=== PATIENT | male | born 1945 | race Hispanic/Latino ===

== ENCOUNTER 2021-08-26 16:35 | Inpatient (IN) | payer OTHER, MEDICARE ==
[~2021-08-26] VITALS: Ht 167.6 cm; Wt 62.1 kg
[~2021-08-26 16:35] MED LIST: BENA20TA77 PO; CHOL500045 PO; CITA10SO PO; FINA5TAB41 PO; FOLI1TAB15 PO; LORA-699 PO; SODI100037 PO; Thiamine Hcl PO
[2021-08-26] MEDS ORDERED: ACETAMINOPHEN 500 MG TABLET PO ONE (17:00)
[2021-08-26 17:25] LABS: BASOPHILS % (AUTO) 0.1 % (0.0-5.0); MEAN CORPUSCULAR HEMOGLOBIN 31.6 pg (27.0-33.0); MEAN CORPUSCULAR HGB CONC 35.4 g/dL (32.0-36.0); MEAN CORPUSCULAR VOLUME 89.1 fL (79-99); MONOCYTES % (AUTO) 10.9 % (3.0-13.0); NEUTROPHILS % (AUTO) 79.6 % (40.0-77.0); PLATELET COUNT (AUTO) 209 K/uL (130-400); RED BLOOD CELL COUNT(AUTO) 3.93 MIL/uL (4.50-6.20); RED CELL DISTRIBUTION WIDTH 13.1 % (11.0-15.5); WHITE BLOOD COUNT (AUTO) 15.9 K/uL (4.8-10.8)
[2021-08-26 17:36] LABS: CARBON DIOXIDE 21 mmol/L (21-32); CHLORIDE 92 mmol/L (101-111); CREATININE 1.3 mg/dL (0.5-1.5); GLOMERULAR FILTR. RATE CALC 57 mL/min (>60); GLUCOSE,RANDOM 142 mg/dL (70-105); POTASSIUM 3.7 mmol/L (3.5-5.1); SODIUM SERUM 127 mmol/L (136-145); UREA NITROGEN, BLOOD 16 mg/dL (7-18)
[2021-08-26 17:37] LABS: INR 1.13 (0.85-1.15); PROTHROMBIN TIME 12.2 SEC (9.6-11.6)
[2021-08-26 17:40] LABS: ALANINE AMINOTRANSFERASE 15 U/L (12-78); ALBUMIN 3.5 g/dL (3.5-5.0); ALCOHOL, BLOOD < 3 mg/dL (0-10); ASPARTATE AMINOTRANSFERASE 26 U/L (10-37); BILIRUBIN,TOTAL 1.7 mg/dL (0.2-1.0); TOTAL PROTEIN, SERUM 7.9 g/dL (6.0-8.3)
[2021-08-26] MEDS ORDERED: 0.9%NACL 1000ML 1,000 ML IV ONE (17:59)
[2021-08-26 18:19] LABS: APPEARANCE,URINE Cloudy (CLEAR); BILIRUBIN,URINE Small (NEGATIVE); COLOR,URINE Orange (YELLOW); GLUCOSE, URINE (UA) Negative (NEGATIVE); KETONES,URINE Trace mg/dL (NEGATIVE); LEUKOCYTE ESTERASE ,URINE Large (NEGATIVE); NITRATE,URINE Negative (NEGATIVE); OCCULT BLOOD,URINE Trace (NEGATIVE); PH,URINE 5.5 (5.0-8.0); PROTEIN,URINE Trace mg/dL (NEGATIVE)
[2021-08-26 18:56] LABS: BACTERIA,URINE Moderate /HPF (None Seen); RBC,URINE None Seen /HPF (0-1); SQUAMOUS EPITHELIAL CELL,UR None Seen /HPF (0-2); WBC,URINE 26-50 /HPF (0-1)
[2021-08-26] MEDS ORDERED: ACETAMINOPHEN WITH CODEINE 1 TAB TAB PO PRN (19:00)
[2021-08-26] MEDS ORDERED: ONDANSETRON 4MG INJ IV PRN (19:00)
[2021-08-26] MEDS ORDERED: MULTIVITAMIN TABLET PO SCH (19:00)
[2021-08-26] MEDS ORDERED: MORPHINE 4 MG SYG IV PRN (19:00)
[2021-08-26] MEDS ORDERED: ACETAMINOPHEN 325 MG TAB PO PRN (19:00)
[2021-08-26] MEDS ORDERED: CEFTRIAXONE 1G VIAL IVP ONE (19:30)
[2021-08-26] MEDS: 0.9%NACL 1000ML 1,000 ML IV SCH (19:52)
[2021-08-26] MEDS: FAMOTIDINE 20MG TAB PO SCH (19:56)
[2021-08-26] MEDS ORDERED: FOLIC ACID 1 MG TABLET PO ONE (19:59)
[2021-08-26] MEDS ORDERED: THIAMINE HCL 100 MG TABLET PO ONE (19:59)
[2021-08-26] MEDS ORDERED: AMLO-257 PO (20:21)
[2021-08-26] MEDS ORDERED: ROSU5TAB12 PO (20:21)
[2021-08-26] MEDS ORDERED: METO-408 PO (20:21)
[2021-08-26] MEDS ORDERED: TAMS-1 PO (20:21)
[2021-08-26] MEDS ORDERED: ERGO500093 PO (20:21)
[2021-08-27] MEDS ORDERED: LORAZEPAM 2 MG/ML 1 ML VIAL IVP PRN
[2021-08-27] MEDS ORDERED: PHARMACY COMMUNICATION MISC PRN
[2021-08-27 00:15] VITALS: BP 102/70
[2021-08-27 04:35] VITALS: BP 108/69
[2021-08-27 05:07] LABS: MEAN CORPUSCULAR HEMOGLOBIN 32.1 pg (27.0-33.0); MEAN CORPUSCULAR HGB CONC 35.9 g/dL (32.0-36.0); MEAN CORPUSCULAR VOLUME 89.5 fL (79-99); RED BLOOD CELL COUNT(AUTO) 3.24 MIL/uL (4.50-6.20); RED CELL DISTRIBUTION WIDTH 13.1 % (11.0-15.5); WHITE BLOOD COUNT (AUTO) 12.9 K/uL (4.8-10.8)
[2021-08-27 05:36] LABS: ALBUMIN 2.7 g/dL (3.5-5.0); BILIRUBIN,TOTAL 0.9 mg/dL (0.2-1.0); CREATININE 0.9 mg/dL (0.5-1.5); POTASSIUM 3.5 mmol/L (3.5-5.1); TOTAL PROTEIN, SERUM 6.3 g/dL (6.0-8.3)
[2021-08-27 07:25] LABS: CHLORIDE,URINE RANDOM 39 mmol/L (110-250); CREATININE,URINE RANDOM 158 mg/dL (30-135); POTASSIUM,URINE RANDOM 45 mmol/L (25-125); SODIUM,URINE RANDOM 17 mmol/l (40-220)
[2021-08-27 07:30] VITALS: BP 147/92
[2021-08-27] MEDS ORDERED: KETOROLAC 15MG/ML VIAL (15MG/ML) IM PRN (08:00)
[2021-08-27] MEDS: CEFTRIAXONE 1G VIAL IVP SCH (09:40)
[2021-08-27] MEDS: AMLODIPINE 5 MG TAB PO SCH (09:41)
[2021-08-27] MEDS: MULTIVITAMIN TABLET PO SCH (09:41)
[2021-08-27] MEDS: FOLIC ACID 1 MG TABLET PO SCH (09:41)
[2021-08-27] MEDS: THIAMINE HCL 100 MG TABLET PO SCH (09:42)
[2021-08-27] MEDS: 0.9%NACL 1000ML 1,000 ML IV SCH ×2 (09:47→21:40)
[2021-08-27 11:00] VITALS: BP 121/71
[2021-08-27 16:00] VITALS: BP 150/83
[2021-08-27] MEDS: TAMSULOSIN HCL 0.4 MG CAP.ER.24H PO SCH (16:42)
[2021-08-27] MEDS: KCL 20 MEQ ERTAB PO PRN (16:42)
[2021-08-27 20:08] VITALS: BP 108/65
[2021-08-27] MEDS: ATORVASTATIN 10 MG TABLET PO SCH (21:21)
[2021-08-27] MEDS: FAMOTIDINE 20MG TAB PO SCH (21:21)
[2021-08-27] MEDS: METOPROLOL SUCCINATE 50 MG TAB.SR.24H PO SCH (21:22)
[2021-08-28 00:16] VITALS: BP 121/75
[2021-08-28 04:20] VITALS: BP 152/80
[2021-08-28 04:41] LABS: BASOPHILS % (AUTO) 0.2 % (0.0-5.0); EOSINOPHILS % (AUTO) 1.1 % (0.0-8.0); HEMATOCRIT 26.9 % (42-54); LYMPHOCYTES % (AUTO) 21.2 % (21.0-51.0); MEAN CORPUSCULAR HGB CONC 35.3 g/dL (32.0-36.0); MEAN CORPUSCULAR VOLUME 90.6 fL (79-99); MONOCYTES % (AUTO) 14.7 % (3.0-13.0); NEUTROPHILS % (AUTO) 62.2 % (40.0-77.0); PLATELET COUNT (AUTO) 228 K/uL (130-400); RED BLOOD CELL COUNT(AUTO) 2.97 MIL/uL (4.50-6.20); RED CELL DISTRIBUTION WIDTH 13.1 % (11.0-15.5); WHITE BLOOD COUNT (AUTO) 9.8 K/uL (4.8-10.8)
[2021-08-28 04:56] LABS: ALBUMIN 2.4 g/dL (3.5-5.0); BILIRUBIN,TOTAL 0.8 mg/dL (0.2-1.0); CREATININE 0.7 mg/dL (0.5-1.5); POTASSIUM 3.4 mmol/L (3.5-5.1); TOTAL PROTEIN, SERUM 5.9 g/dL (6.0-8.3)
[2021-08-28 07:30] VITALS: BP 152/71
[2021-08-28] MEDS: KCL 20 MEQ ERTAB PO PRN (07:59)
[2021-08-28] MEDS: MULTIVITAMIN TABLET PO SCH (09:38)
[2021-08-28] MEDS: FOLIC ACID 1 MG TABLET PO SCH (09:38)
[2021-08-28] MEDS: CEFTRIAXONE 1G VIAL IVP SCH (09:38)
[2021-08-28] MEDS: THIAMINE HCL 100 MG TABLET PO SCH (09:38)
[2021-08-28] MEDS: AMLODIPINE 5 MG TAB PO SCH (09:38)
[2021-08-28 11:00] VITALS: BP 145/78
[2021-08-28 16:00] VITALS: BP 149/93
[2021-08-28] MEDS: 0.9%NACL 1000ML 1,000 ML IV SCH (17:09)
[2021-08-28] MEDS: TAMSULOSIN HCL 0.4 MG CAP.ER.24H PO SCH (17:09)
[2021-08-28 20:12] VITALS: BP 128/68
[2021-08-28] MEDS: FAMOTIDINE 20MG TAB PO SCH (20:16)
[2021-08-28] MEDS: ATORVASTATIN 10 MG TABLET PO SCH (20:16)
[2021-08-28] MEDS: METOPROLOL SUCCINATE 50 MG TAB.SR.24H PO SCH (20:18)
[2021-08-29] VITALS (24 sets, daily range): BP systolic 110–153; BP diastolic 44–82
[2021-08-29] MEDS: 0.9%NACL 1000ML 1,000 ML IV SCH ×2 (00:20→13:40)
[2021-08-29 04:39] LABS: HEMATOCRIT 25.5 % (42-54); MEAN CORPUSCULAR HEMOGLOBIN 31.4 pg (27.0-33.0); MEAN CORPUSCULAR HGB CONC 34.9 g/dL (32.0-36.0); MEAN CORPUSCULAR VOLUME 90.1 fL (79-99); RED BLOOD CELL COUNT(AUTO) 2.83 MIL/uL (4.50-6.20); RED CELL DISTRIBUTION WIDTH 13.1 % (11.0-15.5); WHITE BLOOD COUNT (AUTO) 9.2 K/uL (4.8-10.8)
[2021-08-29 04:48] LABS: INR 1.18 (0.85-1.15); PROTHROMBIN TIME 12.7 SEC (9.6-11.6)
[2021-08-29 04:55] LABS: CREATININE 0.6 mg/dL (0.5-1.5)
[2021-08-29] MEDS: POTASSIUM CHLORIDE 20MEQ/100ML 100 ML IV PRN (05:21)
[2021-08-29] MEDS: LIDOCAINE HCL-MPF 1% 2ML VIAL IV PRN (05:23)
[2021-08-29] MEDS: FOLIC ACID 1 MG TABLET PO SCH (09:16)
[2021-08-29] MEDS: AMLODIPINE 5 MG TAB PO SCH (09:16)
[2021-08-29] MEDS: MULTIVITAMIN TABLET PO SCH (09:16)
[2021-08-29] MEDS: THIAMINE HCL 100 MG TABLET PO SCH (09:16)
[2021-08-29] MEDS: CEFTRIAXONE 1G VIAL IVP SCH (09:17)
[2021-08-29] MEDS ORDERED: LACTATED RINGERS 1000ML 1,000 ML IV ONE (11:53)
[2021-08-29] MEDS ORDERED: PROPOFOL 10 MG/ML 20ML VIAL IV ONE (13:34)
[2021-08-29] MEDS ORDERED: ROCURONIUM 10MG/1ML SYR 10 MG/ML ML ONE (13:34)
[2021-08-29] MEDS ORDERED: MIDAZOLAM HCL 1 MG/ML 2ML VIAL ONE (13:34)
[2021-08-29] MEDS ORDERED: LIDOCAINE PF 100MG/5ML (2%) SYRINGE 5ML ONE (13:34)
[2021-08-29] MEDS ORDERED: FENTANYL CITRATE PF 50 MCG/1 ML 2ML VIAL ONE (13:34)
[2021-08-29] MEDS ORDERED: DEXAMETHASONE SOD PHOSPHATE 10MG/ML 1ML VIAL ONE (13:38)
[2021-08-29] MEDS ORDERED: ROPIVACAINE 0.5% 5MG/ML 30ML IJ ONE (13:39)
[2021-08-29] MEDS ORDERED: EPHEDRINE SULFATE 50 MG/ML AMPULE ONE (13:53)
[2021-08-29] MEDS ORDERED: PHENYLEPHRINE HCL 10 MG/ML 1ML VIAL IV ONE (14:28)
[2021-08-29] MEDS ORDERED: GLYCOPYRROLATE 1 MG/5 ML SYRINGE ONE (15:06)
[2021-08-29] MEDS ORDERED: ONDANSETRON 4MG INJ ONE (15:10)
[2021-08-29] MEDS: TAMSULOSIN HCL 0.4 MG CAP.ER.24H PO SCH (17:00)
[2021-08-29] MEDS: ATORVASTATIN 10 MG TABLET PO SCH (19:37)
[2021-08-29] MEDS: METOPROLOL SUCCINATE 50 MG TAB.SR.24H PO SCH (19:37)
[2021-08-29] MEDS: FAMOTIDINE 20MG TAB PO SCH (19:37)
[2021-08-30] MEDS: 0.9%NACL 1000ML 1,000 ML IV SCH ×2 (01:56→16:20)
[2021-08-30 04:00] VITALS: BP 157/87
[2021-08-30 04:14] LABS: BASOPHILS % (AUTO) 0.1 % (0.0-5.0); HEMATOCRIT 28.4 % (42-54); LYMPHOCYTES % (AUTO) 13.2 % (21.0-51.0); MEAN CORPUSCULAR HEMOGLOBIN 31.7 pg (27.0-33.0); MEAN CORPUSCULAR HGB CONC 34.5 g/dL (32.0-36.0); MEAN CORPUSCULAR VOLUME 91.9 fL (79-99); MONOCYTES % (AUTO) 7.8 % (3.0-13.0); NEUTROPHILS % (AUTO) 78.2 % (40.0-77.0); PLATELET COUNT (AUTO) 306 K/uL (130-400); RED BLOOD CELL COUNT(AUTO) 3.09 MIL/uL (4.50-6.20); RED CELL DISTRIBUTION WIDTH 12.9 % (11.0-15.5); WHITE BLOOD COUNT (AUTO) 8.8 K/uL (4.8-10.8)
[2021-08-30 04:24] LABS: ALBUMIN 2.3 g/dL (3.5-5.0); BILIRUBIN,TOTAL 0.9 mg/dL (0.2-1.0); CREATININE 0.6 mg/dL (0.5-1.5); POTASSIUM 3.8 mmol/L (3.5-5.1); TOTAL PROTEIN, SERUM 6.2 g/dL (6.0-8.3)
[2021-08-30 07:55] VITALS: BP 154/78
[2021-08-30] MEDS: MULTIVITAMIN TABLET PO SCH (08:48)
[2021-08-30] MEDS: THIAMINE HCL 100 MG TABLET PO SCH (08:48)
[2021-08-30] MEDS: FOLIC ACID 1 MG TABLET PO SCH (08:48)
[2021-08-30] MEDS: AMLODIPINE 5 MG TAB PO SCH (08:48)
[2021-08-30] MEDS: CEFTRIAXONE 1G VIAL IVP SCH (08:49)
[2021-08-30 11:19] VITALS: BP 129/67
[2021-08-30 16:02] VITALS: BP 123/68
[2021-08-30] MEDS: TAMSULOSIN HCL 0.4 MG CAP.ER.24H PO SCH (18:21)
[2021-08-30] MEDS: METOPROLOL SUCCINATE 50 MG TAB.SR.24H PO SCH (19:06)
[2021-08-30] MEDS: ATORVASTATIN 10 MG TABLET PO SCH (19:06)
[2021-08-30] MEDS: FAMOTIDINE 20MG TAB PO SCH (19:06)
[2021-08-30 20:00] VITALS: BP 127/92
[2021-08-31] VITALS: BP 161/74
[2021-08-31 03:47] LABS: BASOPHILS % (AUTO) 0.1 % (0.0-5.0); EOSINOPHILS % (AUTO) 1.7 % (0.0-8.0); HEMATOCRIT 27.4 % (42-54); LYMPHOCYTES % (AUTO) 27.8 % (21.0-51.0); MEAN CORPUSCULAR HEMOGLOBIN 31.6 pg (27.0-33.0); MEAN CORPUSCULAR HGB CONC 34.7 g/dL (32.0-36.0); MONOCYTES % (AUTO) 12.4 % (3.0-13.0); NEUTROPHILS % (AUTO) 57.4 % (40.0-77.0); PLATELET COUNT (AUTO) 321 K/uL (130-400); RED BLOOD CELL COUNT(AUTO) 3.01 MIL/uL (4.50-6.20); RED CELL DISTRIBUTION WIDTH 13.2 % (11.0-15.5); WHITE BLOOD COUNT (AUTO) 12.1 K/uL (4.8-10.8)
[2021-08-31 04:00] VITALS: BP 167/73
[2021-08-31 04:05] LABS: ALBUMIN 2.5 g/dL (3.5-5.0); BILIRUBIN,TOTAL 0.8 mg/dL (0.2-1.0); CREATININE 0.7 mg/dL (0.5-1.5); TOTAL PROTEIN, SERUM 6.2 g/dL (6.0-8.3)
[2021-08-31 04:12] LABS: POTASSIUM 2.7 mmol/L (3.5-5.1)
[2021-08-31] MEDS: POTASSIUM CHLORIDE 20MEQ/100ML 100 ML IV PRN ×2 (04:16→09:49)
[2021-08-31] MEDS: KCL 20 MEQ ERTAB PO PRN ×6 (04:16→23:00)
[2021-08-31] MEDS: 0.9%NACL 1000ML 1,000 ML IV SCH ×2 (04:19→17:24)
[2021-08-31 07:48] VITALS: BP 184/74
[2021-08-31] MEDS: THIAMINE HCL 100 MG TABLET PO SCH (09:44)
[2021-08-31] MEDS: AMLODIPINE 5 MG TAB PO SCH (09:44)
[2021-08-31] MEDS: CEFTRIAXONE 1G VIAL IVP SCH (09:44)
[2021-08-31] MEDS: FOLIC ACID 1 MG TABLET PO SCH (09:44)
[2021-08-31] MEDS: ACETAMINOPHEN 325 MG TAB PO PRN ×2 (09:47→20:18)
[2021-08-31] MEDS: MULTIVITAMIN TABLET PO SCH (09:47)
[2021-08-31] MEDS: LIDOCAINE HCL-MPF 1% 2ML VIAL IV PRN (09:49)
[2021-08-31 10:53] VITALS: BP 135/67
[2021-08-31] MEDS ORDERED: ENOXAPARIN SODIUM 40 MG/0.4 ML SYRINGE SQ SCH (14:00)
[2021-08-31] MEDS ORDERED: ENOXAPARIN SODIUM 40 MG/0.4 ML SYRINGE SQ ONE (14:10)
[2021-08-31] MEDS: TAMSULOSIN HCL 0.4 MG CAP.ER.24H PO SCH (14:16)
[2021-08-31 16:23] VITALS: BP 110/64
[2021-08-31 20:00] VITALS: BP 156/86
[2021-08-31] MEDS: METOPROLOL SUCCINATE 50 MG TAB.SR.24H PO SCH (20:12)
[2021-08-31] MEDS: FAMOTIDINE 20MG TAB PO SCH (20:12)
[2021-08-31] MEDS: ATORVASTATIN 10 MG TABLET PO SCH (20:12)
[2021-08-31] MEDS: LABETALOL 20MG VIAL IV PRN (23:38)
[2021-09-01] VITALS (8 sets, daily range): BP systolic 115–177; BP diastolic 65–88
[2021-09-01] MEDS: ACETAMINOPHEN 325 MG TAB PO PRN (01:16)
[2021-09-01] MEDS: POTASSIUM CHLORIDE 10% ELIXIR 20 MEQ/15 ML UDCUP PO PRN ×3 (01:16→06:31)
[2021-09-01 04:00] LABS: BASOPHILS % (AUTO) 0.5 % (0.0-5.0); EOSINOPHILS % (AUTO) 4.3 % (0.0-8.0); HEMATOCRIT 25.7 % (42-54); LYMPHOCYTES % (AUTO) 33.7 % (21.0-51.0); MEAN CORPUSCULAR HGB CONC 34.6 g/dL (32.0-36.0); MEAN CORPUSCULAR VOLUME 92.4 fL (79-99); NEUTROPHILS % (AUTO) 48.3 % (40.0-77.0); PLATELET COUNT (AUTO) 355 K/uL (130-400); RED BLOOD CELL COUNT(AUTO) 2.78 MIL/uL (4.50-6.20); RED CELL DISTRIBUTION WIDTH 13.2 % (11.0-15.5); WHITE BLOOD COUNT (AUTO) 8.6 K/uL (4.8-10.8)
[2021-09-01 04:23] LABS: ALBUMIN 2.3 g/dL (3.5-5.0); BILIRUBIN,TOTAL 0.8 mg/dL (0.2-1.0); CREATININE 0.6 mg/dL (0.5-1.5); POTASSIUM 3.6 mmol/L (3.5-5.1); TOTAL PROTEIN, SERUM 5.7 g/dL (6.0-8.3)
[2021-09-01] MEDS: 0.9%NACL 1000ML 1,000 ML IV SCH ×2 (06:30→20:07)
[2021-09-01] MEDS: AMLODIPINE 5 MG TAB PO SCH (08:10)
[2021-09-01] MEDS: MULTIVITAMIN TABLET PO SCH (08:10)
[2021-09-01] MEDS: THIAMINE HCL 100 MG TABLET PO SCH (08:10)
[2021-09-01] MEDS: FOLIC ACID 1 MG TABLET PO SCH (08:10)
[2021-09-01] MEDS: CEFTRIAXONE 1G VIAL IVP SCH (08:10)
[2021-09-01] MEDS: LABETALOL 20MG VIAL IV PRN (08:14)
[2021-09-01] MEDS: ENOXAPARIN SODIUM 30 MG/0.3 ML SQ SCH (08:16)
[2021-09-01] MEDS ORDERED: NITR100C PO (15:48)
[2021-09-01] MEDS: TAMSULOSIN HCL 0.4 MG CAP.ER.24H PO SCH (19:47)
[2021-09-01] MEDS: METOPROLOL SUCCINATE 50 MG TAB.SR.24H PO SCH (20:06)
[2021-09-01] MEDS: FAMOTIDINE 20MG TAB PO SCH (20:06)
[2021-09-01] MEDS: ATORVASTATIN 10 MG TABLET PO SCH (20:06)
[2021-09-02] VITALS: BP 138/78
[2021-09-02] MEDS: 0.9%NACL 1000ML 1,000 ML IV SCH (00:44)
[2021-09-02] MEDS: LABETALOL 20MG VIAL IV PRN (03:47)
[2021-09-02 04:00] VITALS: BP 168/90
[2021-09-02 08:05] VITALS: BP 150/85
[2021-09-02] MEDS: CEFTRIAXONE 1G VIAL IVP SCH (10:05)
[2021-09-02] MEDS: MULTIVITAMIN TABLET PO SCH (10:05)
[2021-09-02] MEDS: FOLIC ACID 1 MG TABLET PO SCH (10:05)
[2021-09-02] MEDS: THIAMINE HCL 100 MG TABLET PO SCH (10:06)
[2021-09-02] MEDS: AMLODIPINE 5 MG TAB PO SCH (10:06)
[2021-09-02] MEDS: ENOXAPARIN SODIUM 30 MG/0.3 ML SQ SCH (10:07)
[2021-09-02 12:00] VITALS: BP 93/66
[2021-09-02 16:00] VITALS: BP 141/79
[2021-09-02] MEDS: TAMSULOSIN HCL 0.4 MG CAP.ER.24H PO SCH (17:00)
[2021-09-02 20:00] VITALS: BP 138/82
[2021-09-02] MEDS: ATORVASTATIN 10 MG TABLET PO SCH (20:35)
[2021-09-02] MEDS: METOPROLOL SUCCINATE 50 MG TAB.SR.24H PO SCH (20:35)
[2021-09-02] MEDS: FAMOTIDINE 20MG TAB PO SCH (20:35)
[2021-09-02] MEDS: ACETAMINOPHEN 325 MG TAB PO PRN (20:40)
[2021-09-03] VITALS: BP 128/70
[2021-09-03] MEDS: 0.9%NACL 1000ML 1,000 ML IV SCH (00:20)
[2021-09-03 04:00] VITALS: BP 153/74
[2021-09-03 07:30] VITALS: BP 154/74
[2021-09-03] MEDS: FOLIC ACID 1 MG TABLET PO SCH (08:48)
[2021-09-03] MEDS: CEFTRIAXONE 1G VIAL IVP SCH (08:48)
[2021-09-03] MEDS: MULTIVITAMIN TABLET PO SCH (08:48)
[2021-09-03] MEDS: AMLODIPINE 5 MG TAB PO SCH (08:48)
[2021-09-03] MEDS: ENOXAPARIN SODIUM 30 MG/0.3 ML SQ SCH (08:49)
[2021-09-03] MEDS: THIAMINE HCL 100 MG TABLET PO SCH (08:49)
[2021-09-03 12:00] VITALS: BP 89/58
== END 2021-09-03 16:00 | DRG 481 ==
LOC: EDH 16:35 → EDHIP 18:48 → 4AH 23:00 → 3CH 09-02 05:23
PROVIDERS: ADMIT Internal Medicine Pulmonary Disease; ATTEND Internal Medicine Pulmonary Disease
PROC: 0QS634Z Reposition Right Upper Femur with Internal Fixation Device, Percutaneous Approach (ICD-10-PCS; principal; 2021-09-01)
PROC: 3E0T3BZ Introduction of Anesthetic Agent into Peripheral Nerves and Plexi, Percutaneous Approach (ICD-10-PCS; 2021-09-01)
PROC: 3E0T33Z Introduction of Anti-inflammatory into Peripheral Nerves and Plexi, Percutaneous Approach (ICD-10-PCS; 2021-09-01)
DX: S72.141A Displaced intertrochanteric fracture of right femur, initial encounter for closed fracture (principal); E87.1 Hypo-osmolality and hyponatremia; N39.0 Urinary tract infection, site not specified; F10.10 Alcohol abuse, uncomplicated; E86.1 Hypovolemia; E87.8 Other disorders of electrolyte and fluid balance, not elsewhere classified; N40.0 Benign prostatic hyperplasia without lower urinary tract symptoms; I10 Essential (primary) hypertension; E87.5 Hyperkalemia; Z20.822 Contact with and (suspected) exposure to COVID-19; E78.5 Hyperlipidemia, unspecified; Y93.01 Activity, walking, marching and hiking; R29.6 Repeated falls; F17.210 Nicotine dependence, cigarettes, uncomplicated; E11.9 Type 2 diabetes mellitus without complications; E78.00 Pure hypercholesterolemia, unspecified; B96.20 Unspecified Escherichia coli [E. coli] as the cause of diseases classified elsewhere; W01.0XXA Fall on same level from slipping, tripping and stumbling without subsequent striking against object, initial encounter; Y92.098 Other place in other non-institutional residence as the place of occurrence of the external cause; Y99.8 Other external cause status; Z71.41 Alcohol abuse counseling and surveillance of alcoholic; Z83.3 Family history of diabetes mellitus; Z82.49 Family history of ischemic heart disease and other diseases of the circulatory system
CPT/HCPCS: 36415; 70450; 71045; 71250; 72125; 72170; 73503; 74176; 80048; 80051; 80053; 81001; 82570; 82607; 82746; 83935; 84132; 84484; 85025; 85027; 85610; 85730; 87077; 87088; 87186; 87635; 93005; 93306; 97039; C9803; G0378; J0696; J1100; J1650; J2001; J2250; J2370; J2405; J2704; J2795; J3010; J3480; J3490; J7030; J7120

== ENCOUNTER → 2023-04-19 | Outpatient (CLI) | payer OTHER, MEDICARE ==
[~2023-04-19] MED LIST changes: +AMLO-257 PO; -BENA20TA77 PO; -CHOL500045 PO; -CITA10SO PO; +ERGO500093 PO; -FINA5TAB41 PO; +METO-408 PO; +NITR100C PO; +ROSU5TAB12 PO; -SODI100037 PO; +TAMS-1 PO
[2023-04-19 12:51] LABS: CREATININE 0.7 mg/dL (0.5-1.5); POTASSIUM 3.9 mmol/L (3.5-5.1)
== END | disposition home or self-care (01) ==
LOC: LAB 09:13
PROVIDERS: ATTEND Student in an Organized Health Care Education/Training Program
DX: I10 Essential (primary) hypertension (principal); R94.31 Abnormal electrocardiogram [ECG] [EKG]
CPT/HCPCS: 36415; 80048

== ENCOUNTER → 2023-05-01 | Outpatient (CLI) | payer OTHER, MEDICARE | END | disposition home or self-care (01) | LOC: SHCH 10:22 | PROVIDERS: ATTEND Student in an Organized Health Care Education/Training Program | DX: I51.7 Cardiomegaly (principal); R94.31 Abnormal electrocardiogram [ECG] [EKG] | CPT/HCPCS: 93306 ==